=== PATIENT | female | born 1995 | race Caucasian/White ===

== ENCOUNTER 2019-09-25 09:05 | Day surgery (SDC) | payer OTHER, MEDICAID, SELFPAY ==
[2019-09-23 11:53] VITALS: BMI 29.4
[2019-09-25] VITALS (7 sets, daily range): BP systolic 101–117; BP diastolic 63–79; PULSE 60–76; RESP 10–17; TEMP 36–36.6; O2SAT 97–99; BMI 29.1
[2019-09-25] MEDS: LACTATED RINGERS 1,000 ML 100 ML IV ×2 (09:35→11:53)
--- NOTE | 2019-09-25 11:16 | P.HPOB_ITS ---
History of Present Illness History of Present Illness Reason for admission: other (Sterilization) Narrative: Renetta Joseph is a 24 year old female here for sterilization [facility] Medical History (Updated 09/25/19 @ 11:19 by Marjan Maguire MD) Chicken pox (Resolved) Hearing loss (Chronic) History of recurrent ear infection (Chronic) Mastoiditis (Acute 02/22/15) (normal spontaneous vaginal delivery) (Acute ~05/2017) Vision disorder (Chronic) Surgical History (Updated 09/23/19 @ 12:01 by Janell Mckee RN) Anesthesia (Resolved) Family History (Updated 07/15/19 @ 21:33 by Claudia Mercer) Father Substance abuse Mother Uterine cancer Mental health problem Grandfather Mental health problem Grandmother Cancer Social History household members: significant other and children Smoking Status: Never smoker Meds Home Medications and Allergies Home Medications Medication Instructions Recorded Confirmed Type ibuprofen 600 mg PO Q6HP PRN 09/25/19 09/25/19 History Allergies Allergy/AdvReac Type Severity Reaction Status Date / Time No Known Drug Allergies Allergy Verified 09/25/19 09:36 Review of Systems Review of Systems ROS Unobtainable: All systems reviewed & are unremarkable except as noted in HPI and below Exam Vital Signs (past 8 hours): - 09/25/19 09:39 Temperature 97.4 F L Pulse Rate 76 Respiratory Rate 15 Blood Pressure 107/70 Pulse Oximetry 97 Oxygen Delivery Method Room Air Narrative Exam Narrative: Preoperative diagnosis: Desire for sterilization and removal of IUD Planned procedure: Laparoscopic tubal ligation by fulguration and removal of IUD HPI: Patient is a 24-year-old para 2 who is currently using an IUD for control who is requesting tubal ligation. She understands that there are multiple forms of control available to her and she wishes to have permanent sterilization by tubal ligation. The [facility] consent form was signed with the patient greater than 30 days ago. Consent form for tubal ligation was reviewed with the patient. Ddiscussion of risks of the procedure including 1 in 400 risk of most likely ectopic after the procedure. 5% risk of pain from scar tissue after procedure. Possible risk of damage to bowel, bladder, ureters. Small risk of infection. Reaction to anesthetic or medication. 2 to 7 day recovery time. Physical exam: HEENT exam within normal limits. Lungs are clear to auscultation percussion. Heart is regular rate and rhythm no S3-S4 or murmurs. Pelvic exam was not performed. Extremities without edema and nontender. Assessment & Plan Assessment and plan (1) Sterilization: Current visit: Yes Status: Acute (2) Encounter for IUD removal: Current visit: Yes Status: Acute Assessment & Plan narrative: Patient who comes in for laparoscopic tubal ligation by fulguration and removal of IUD. She had previously signed the [facility] tubal ligation consent form and signed the operative consent form today.
--- NOTE | 2019-09-25 11:21 | PM.PREOP ---
Pre-operative Note Interval Note History & Physical reviewed/Exam performed by Physician: Yes Changes to H&P: No
--- NOTE | 2019-09-25 11:51 | SUR.OPER ---
Lithotomy on padded OR bed, head on pillow, arms secured on padded arm boards at <90 degrees abduction. Legs secured in padded yellow fins stirrups.
[2019-09-25] MEDS: BUPIVACAINE 0.5% W/ EPI (PF) VIAL 30 ML INJ (11:54)
--- NOTE | 2019-09-25 12:10 | PM.OP.1 ---
Operative Date/Time/Diagnoses Date of procedure: 09/25/19 Time of procedure: 12:10 Pre-op diagnosis: Sterilization and removal of IUD Post-op diagnosis: same Procedure & Clinicians Procedure: Laparoscopic tubal ligation by fulguration and removal of Mirena IUD Same procedure as scheduled: Yes Indications: Desire for sterilization and removal of IUD Surgeon: Marjan Maguire Click Yes if Unassisted: Yes Anesthesia Type: General Operative Notes Findings: Normal tubes, ovaries, and uterus. No endometriosis. No internal hernias. No scar tissue. Normal liver edge and bowel surface. Closure Type: primary Specimen(s): none sent Estimated Blood Loss (mL): 5 Blood products transfused: none Procedure in detail: Patient was brought to the operating room where she underwent general anesthesia. She was placed in low yellowfin stirrups and prepped and draped in usual sterile fashion. No antibiotics were indicated. Warming was with blankets. A single-tooth tenaculum was placed on the anterior lip of the cervix and the IUD strings were grasped and the IUD removed without difficulty. The cervix dilated to #6 Hegar dilator. The Arti uterine manipulator was placed and balloon inflated with 3 mL of air. The area of the incisions were injected with half percent Marcaine with epinephrine. An incision was made in the umbilicus with a scalpel and the Verres needle placed in the abdomen. Confirmation of correct placement of the needle was performed by withdrawing on the syringe and then allowing fluid to fall freely through the needle. The abdomen was insufflated to 4 L of CO2. A 5 mm trocar was placed under direct visualization. A 5 mm trochars were placed in the right lower quadrant under direct visualization after incising the skin. There did not appear to be any damage with placement of the trocars. The right fallopian tube was grasped and cauterized with the PK generator in 3 places and cut. Same procedure was performed on the left fallopian tube. Adequate hemostasis was noted. The CO2 was allowed to escape from the abdomen. The trochars were removed. Skin was closed with 4-0 monocryl. The patient went to recovery room in good condition. Complications: none Post-operative Condition: stable Disposition: same day surgery Plan for aftercare: Routine post laparoscopic tubal ligation
[2019-09-25] MEDS: fentaNYL 100 MCG/2 ML INJ 50 MCG IV ×2 (12:25→12:30)
--- NOTE | 2019-09-25 12:40 | SUR.PHASEI ---
states that her pain level is improved after Rx, taking ice chips, throat pain has decreased from a 5 to a 2 /10. No nausea, skin warm and dry, resp unlabored. States that her vision is blurry, glasses returned from her mother to the patient.
[2019-09-25] MEDS: HYDROCODONE/ACET 5/325 TABLET 2 TAB PO (12:56)
--- NOTE | 2019-09-25 13:14 | SUR.PHASEII ---
1305 desires to go home, denies pain, Rx given in anticipation and to promote pain control. Tolerating fluids well. Instructions reviewed and patient and mother. Stable. explained about Ketorolac, told not to take ibuprofen prior to 6pm.
== END 2019-09-25 13:30 | disposition home or self-care (01) ==
PROVIDERS: Family Provider Family Medicine; PCP Family Medicine; Visit Provider Specialist
PROC: (CPT 58671; principal; 2019-09-25 10:45)
DX: Z30.2 Encounter for sterilization (principal); Z30.432 Encounter for removal of intrauterine contraceptive device
CPT/HCPCS: 58670; 58301; J1100; J1885; J2405; J2704; J3010

== ENCOUNTER → 2019-11-11 10:49 | Outpatient (ROUT) | payer OTHER, MEDICAID, SELFPAY ==
[2019-11-11 11:13] LABS: Influenza A - CEPHEID Flu A NEGATIVE (NEGATIVE); Influenza B - CEPHEID Flu B POSITIVE (NEGATIVE)
== END ==
PROVIDERS: Family Provider Family Medicine; PCP Family Medicine; Visit Provider Internal Medicine
DX: R50.9 Fever, unspecified (principal); R05 Cough
CPT/HCPCS: 87502

== ENCOUNTER → 2020-09-17 09:18 | Outpatient (CLI) | payer OTHER, MEDICAID, SELFPAY ==
[2020-09-18 21:31] LABS: COVID19 Sendout Not Detected (Not Detect)
== END ==
PROVIDERS: Family Provider Family Medicine; PCP Family Medicine; Visit Provider Physician Assistant
DX: Z01.812 Encounter for preprocedural laboratory examination (principal)
CPT/HCPCS: 87635

== ENCOUNTER → 2022-10-30 17:48 | Outpatient (ROUT) | payer OTHER, MEDICAID, SELFPAY ==
[2022-10-30 18:31] LABS: Influenza A - CEPHEID Flu A NEGATIVE (NEGATIVE); Influenza B - CEPHEID Flu B NEGATIVE (NEGATIVE)
== END ==
PROVIDERS: Family Provider Family Medicine; PCP Family Medicine; Visit Provider Family Medicine
DX: R05.1 Acute cough (principal)
CPT/HCPCS: 87502

== ENCOUNTER 2024-01-02 17:19 | Emergency (ER) | payer OTHER, MEDICAID, SELFPAY ==
[2024-01-02 17:25] VITALS: BP 113/69; PULSE 103; RESP 16; TEMP 36.8; O2SAT 99; BMI 24.3
--- NOTE | 2024-01-02 17:29 | DI.RAD.S_ITS ---
PROCEDURE: XR WRIST RT MIN 3V INDICATIONS: fall/pain TECHNIQUE: Four views of the wrist were acquired. COMPARISON: None. FINDINGS: Bones: No fractures or dislocations. No suspicious bony lesions. Soft tissues: No suspicious soft tissue calcifications. IMPRESSION: No acute bony abnormality. Dictated by: Grace Salas M.D. on 01/02/2024 at 18:31 Approved by: Grace Salas M.D. on 01/02/2024 at 18:31
[2024-01-02] MEDS: IBUPROFEN 400 MG TABLET 800 MG PO (18:40)
--- NOTE | 2024-01-02 18:41 | ED.UPPEXIN ---
HPI - Extremity Injury (Upper) <Lupis Rodriguez PA-C - Last Filed: 01/02/24 18:47> General Chief Complaint: Extremity Injury, Upper Stated Complaint: fall, wrist pain Time Seen by Provider: 01/02/24 17:31 Source: patient and family Mode of arrival: Ambulatory History of Present Illness HPI narrative: Patient is a 28-year-old female who tripped and fell on her outstretched right hand and presents with right wrist pain. The pain is along both sides of the wrist and over the dorsal aspect. She has not taken any medication or tried any therapy. She has no history of wrist injury. Related Data Previous Rx's Medication Instructions Recorded ibuprofen 800 mg tablet 800 mg PO Q8H PRN pain #30 tabs 01/02/24 Allergies Allergy/AdvReac Type Severity Reaction Status Date / Time morphine Allergy Verified 01/02/24 17:32 Review of Systems <Lupis Rodriguez PA-C - Last Filed: 01/02/24 18:47> Review of Systems ROS Unobtainable: All systems reviewed & are unremarkable except as noted in HPI and below Patient History <Lupis Rodriguez PA-C - Last Filed: 01/02/24 18:47> Medical History (normal spontaneous vaginal delivery) (~05/2017) Mastoiditis (02/22/15) Vision disorder Chicken pox History of recurrent ear infection Hearing loss Surgical History Anesthesia Family History Father Substance abuse Mother Uterine cancer Mental health problem Grandfather Mental health problem Grandmother Cancer Social History household members: significant other and children Smoking Status: Never smoker Smoking Status: Never smoker Substance Use Type: does not use Exam <Lupis Rodriguez PA-C - Last Filed: 01/02/24 18:47> Narrative Exam Narrative: GENERAL: 28 year old patient appears stated age. Well-developed patient, in no acute distress. NEURO: AOx3. HEAD: Atraumatic. Normocephalic. EYES: Pupils equal round and reactive. Extraocular motions intact. No scleral icterus. No injection or drainage. ENT: Nose without bleeding or purulent drainage. Airway patent. RESPIRATORY: No increased work of breathing EXTREMITIES: Mild edema of the right wrist. Tender to palpation over both the radial and ulnar aspects of the wrist as well as over the dorsal aspect of the wrist in the area of the lunate. Sensation is intact, capillary refill 2 seconds, normal range of motion of the fingers, flexion and extension of the wrist with discomfort. No tenderness over the elbow. No open wounds. SKIN: No rash or erythema of visible areas Initial Vital Signs Initial Vital Signs: Vital Signs Temperature 98.3 F 01/02/24 17:25 Pulse Rate 103 H 01/02/24 17:25 Respiratory Rate 16 01/02/24 17:25 Blood Pressure 113/69 01/02/24 17:25 Pulse Oximetry 99 01/02/24 17:25 Oxygen Delivery Method Room Air 01/02/24 17:25 <Sandra Mathews MD - Last Filed: 01/02/24 19:25> Initial Vital Signs Initial Vital Signs: Vital Signs Temperature 98.3 F 01/02/24 17:25 Pulse Rate 103 H 01/02/24 17:25 Respiratory Rate 16 01/02/24 17:25 Blood Pressure 113/69 01/02/24 17:25 Pulse Oximetry 99 01/02/24 17:25 Oxygen Delivery Method Room Air 01/02/24 17:25 Course <Lupis Rodriguez PA-C - Last Filed: 01/02/24 18:47> Orders Ordered: ED Orders 01/02/24 17:29 XR wrist RT min 3V Stat Discontinued Medications Ibuprofen (Ibuprofen 400 Mg Tablet) 800 mg PO NOW ONE Stop: 01/02/24 18:38 Last Admin: 01/02/24 18:40 Dose: 800 mg Documented By: ALEXEY Vital Signs Vital signs: Vital Signs - 8 hr 01/02/24 17:25 01/02/24 18:52 Temperature 98.3 F Pulse Rate 103 H 85 Respiratory Rate 16 16 Blood Pressure 113/69 93/61 Pulse Oximetry 99 100 Oxygen Delivery Method Room Air Room Air <Sandra Mathews MD - Last Filed: 01/02/24 19:25> Orders Ordered: ED Orders 01/02/24 17:29 XR wrist RT min 3V Stat Discontinued Medications Ibuprofen (Ibuprofen 400 Mg Tablet) 800 mg PO NOW ONE Stop: 01/02/24 18:38 Last Admin: 01/02/24 18:40 Dose: 800 mg Documented By: ALEXEY Vital Signs Vital signs: Vital Signs - 8 hr 01/02/24 17:25 01/02/24 18:52 Temperature 98.3 F Pulse Rate 103 H 85 Respiratory Rate 16 16 Blood Pressure 113/69 93/61 Pulse Oximetry 99 100 Oxygen Delivery Method Room Air Room Air MDM - Extremity Injury (Upper) <Lupis Rodriguez PA-C - Last Filed: 01/02/24 18:47> Imaging Data Extremity x-ray #1: Radiologist's Impression: PROCEDURE: XR WRIST RT MIN 3V INDICATIONS: fall/pain TECHNIQUE: Four views of the wrist were acquired. COMPARISON: None. FINDINGS: Bones: No fractures or dislocations. No suspicious bony lesions. Soft tissues: No suspicious soft tissue calcifications. IMPRESSION: No acute bony abnormality. Dictated by: Grace Salas M.D. on 01/02/2024 at 18:31 Approved by: Grace Salas M.D. on 01/02/2024 at 18:31 [facility] Narrative Medical decision making narrative: Multiple etiologies for patient's symptoms considered including, but not limited to: Right wrist fracture, sprain No fracture seen on x-rays. Due to tenderness over the lunate, can not exclude occult fracture. Placed in a Velcro splint and referred to Orthopedics for reassessment. Prescribed 800 mg ibuprofen per patient request. Advised RICE. Patient understands return precautions and plan of care. Patient's symptoms improved over duration of stay with above-stated therapies. Findings and discharge diagnosis discussed with patient/family followed by verbalization of understanding Return precautions discussed with patient/family whom verbalize understanding of diagnosis and plan Discharge Plan Departure Patient Disposition: Home Clinical Impression: Right wrist sprain Qualifiers: Encounter type: initial encounter Qualified Code(s): S63.501A - Unspecified sprain of right wrist, initial encounter Instructions: DI for Wrist Sprain Activity Restrictions/Additional Instructions: You have been diagnosed with a right wrist sprain. You are advised to use R: rest. take it easy and listen to your body! I: ice. apply ice for 20 minutes every 2 hours while awake. Do not put ice directly on the skin. C: compression. Gentle compression with splint will decrease pain and swelling. E: elevation. Keep extremity elevated above the heart whenever possible. Use tylenol or ibuprofen for inflammation and pain. It is generally safe to take up to 3-4grams of tylenol in 24 hours, or 2400mg of ibuprofen in 24 hours. If you have questions about dosing or whether these medications are safe for you, please ask a healthcare provider. Please make a follow-up appointment with the orthopedic clinic for reassessment. There is no fracture on x-ray today but you do have tenderness over the small carpal bones and sometimes there can be a fracture or injury that we do not see initially on x-ray. *What to do: *Please continue to take your regular medications as directed. [ x] New medication prescriptions sent to your pharmacy: [[facility] ] [ ] New medication written as a paper prescription [] No new medications given *Please follow up with your primary care provider in 2-3 days, call for an appointment. Let them know you were seen in the Emergency Department and that we ask that you be seen in follow up. We will electronically transmit a record of today's note if your PCP is in our system *If you do not have a primary care provider please contact the [facility] Resource line at [phone]. They will ask some questions about your medical history and help get you set up with a doctor in the community. *Return to Emergency Department if you should have any new, worsening or concerning symptoms, such as [fever greater than 101 F, shaking chills, worsening pain, persistent vomiting or other concerning symptoms]. Prescriptions: New ibuprofen 800 mg tablet 800 mg PO Q8H PRN (Reason: pain) Qty: 30 0RF Rx Instructions: Take with food Discontinued ibuprofen 600 MG tablet 600 mg PO Q6HP PRN (Reason: Pain) Referrals: [facility] [Provider Group] Bhavik Mcduffie MD [Primary Care Provider] - Stand Alone Forms: Patient Portal/API ED Sign-out <Sandra Mathews MD - Last Filed: 01/02/24 19:25> Cosign ED Attending Juvencioature Attestation: I DID NOT SEE THIS PATIENT. I WAS AVAILABLE ALL TIMES FOR CONSULTATION.
[2024-01-02 18:52] VITALS: BP 93/61; PULSE 85; RESP 16; O2SAT 100
== END 2024-01-02 18:52 | disposition home or self-care (01) ==
PROVIDERS: Emergency Provider Physician Assistant; Family Provider Family Medicine; PCP Family Medicine
DX: S63.501A Unspecified sprain of right wrist, initial encounter (principal); W01.0XXA Fall on same level from slipping, tripping and stumbling without subsequent striking against object, initial encounter
CPT/HCPCS: 73110; 99283